=== PATIENT | male | born 1985 | race Caucasian/White ===

== ENCOUNTER 2025-01-26 15:30 | Emergency (ER) | payer SELFPAY ==
[2025-01-26 15:39] VITALS: BP 115/75; PULSE 96; RESP 18; TEMP 36.7; O2SAT 98; BMI 22.3
--- OUTSIDE RECORDS SUMMARY | 2025-01-26 16:54 | XMS_ITS | Patient Health Record ---
Author Organization [facility] Address [address] [place] [address] Care Team Providers Care Fluxer Name Role Phone Al Osorio Primary Care Provider [phone] Reason For Referral No Information Social History Tobacco Use: Social History Observation Description Date Details (start date - stop date) Current Smoker NA - NA Social History Drugs/Alcohol: Social Info Question Answer Notes Drugs Have you used drugs other than those for medical reasons in the past 12 months? Yes Heroin? Yes Fentanyl Prescription opiates? Yes MAT MAT Status Active MAT Status Date 07/26/2020 restart MAT Agreement Signed Yes MAT Agreement Date 07/26/2020 DO NOT USE SBIRT 2014 Patient refused/declined SBIRT s creening at this time? No In the past 3 months, how often do you have a drink containing alcohol? Monthly or less In the past 3 months, how many drinks containing alcohol do you have on a typical day when you are drinking? 1 or 2 In the past 3 months, how often do you have 4 or more drinks on one occasion? Females (and Males 65 and older). In the past 3 months, how often do you have 5 or more drinks on one occasion? Males (younger than 65) Never In the past 12 months, did you smoke pot, use another street drug, or use a prescription painkiller, stimulant, or sedative for a non-medical reason? Yes The cumulative score is 1 A referral is needed Comprehensive Health Assessm ent Social Info Question Answer Notes Comprehensive Health Assessment Assistance with drug c ost? Yes Assistance with food cost? No Any communication needs? No Any High risk behaviors ? Yes Any Mental health issues? No Any substance abuse ? Yes Tobacco Use: Social Info Question Answer Notes Not to use -Tobacco Use/Smoking Are you a current s moker How often do you smoke cigarettes? every day How many cigarettes a day do you smoke? 11-20 How soon after you wake up do you smoke your first cigarette? within 5 minutes Are you interested in quitting? Not ready to quit Additional Details Category Social Info Options Details Migrated Social History Social History: (Alcohol): Yes (Caffine): Yes (Illicit Drugs): Yes iv drug use (Sexually Active):Yes (Smoking): status: Former Smoker Problems Problem Type SNOMED Code ICD Code Onset Dates Problem Status W/U Status Risk Notes Problem Smoking (50879464) Smoking (F17.200) Active confirmed Problem Opioid dependence (39780524) Opioid dependence, uncomplicated (F11.20) Active confirmed Problem Substance abuse (0736823886) Substance abuse (F19.10) Active confirmed Plan Of Treatment No Information Medical (General) History Surgical History Surgery Date(Month/Year) tonsillectomy
== END 2025-01-26 18:04 | disposition left against medical advice (07) ==
PROVIDERS: Emergency Provider Physician Assistant
DX: Z53.21 Procedure and treatment not carried out due to patient leaving prior to being seen by health care provider (principal); R10.9 Unspecified abdominal pain